=== PATIENT | male | born 1975 | race Two or more races ===

== ENCOUNTER 2019-07-26 09:55 | Outpatient (CLI) | payer OTHER | END 2019-07-26 10:14 | disposition home or self-care (01) | LOC: SONOGRAMA 09:55 | PROVIDERS: ATTEND Urology | DX: R22.9 Localized swelling, mass and lump, unspecified (principal) ==

== ENCOUNTER 2021-02-04 10:54 | Outpatient (CLI) | payer OTHER | END 2021-02-04 11:11 | disposition home or self-care (01) | LOC: SONOGRAMA 10:54 | PROVIDERS: ATTEND Urology | DX: N45.3 Epididymo-orchitis (principal); R22.9 Localized swelling, mass and lump, unspecified ==